=== PATIENT | female | born 1960 | race Caucasian/White ===

== ENCOUNTER 2022-04-21 13:52 | Outpatient (CLI) | payer OTHER, SELFPAY | END 2022-04-21 13:53 | disposition home or self-care (01) | LOC: NFLDUCREF 04-24 11:39 | PROVIDERS: PCP Family Medicine; Visit Provider Student in an Organized Health Care Education/Training Program | DX: R30.0 Dysuria (principal); N39.0 Urinary tract infection, site not specified | CPT/HCPCS: 87086 ==

== ENCOUNTER 2024-03-02 06:12 | Day surgery (SDC) | payer OTHER, SELFPAY ==
[2024-03-02] VITALS (8 sets, daily range): BP systolic 130–150; BP diastolic 70–79; PULSE 64–71; RESP 16; TEMP 36.6; O2SAT 96–98; BMI 27.8
[2024-03-02] MEDS: BUPIVACAINE 0.5% 30 ML INJECTION (07:00)
[2024-03-02] MEDS: ETHYL CHLORIDE 1 APPLICATION 1 APPLIC TOPICAL (07:00)
--- NOTE | 2024-03-02 07:17 | W.PM.H&PU ---
History & Physical Update History & Physical Update H&P Reviewed and patient assessed: No changes noted
[2024-03-02] MEDS: NEOMYCIN/BACITRACIN/POLYMYXIN B 1 APPLIC TOPICAL (07:36)
--- NOTE | 2024-03-02 07:39 | PM.ORPRC ---
Procedure Note Date of procedure: 03/02/24 Procedure: PREOPERATIVE DIAGNOSIS: 1. Right long finger flexor tenosynovitis - trigger finger POSTOPERATIVE DIAGNOSIS: 1. Right long finger flexor tenosynovitis - trigger finger PROCEDURE: 1. Right long finger flexor tendon sheath open release (A1 lobo) SURGEON: Reynaldo Sanders MD. [employer]ILITIES MANAGER: Chris Pa PA-C ANESTHESIA: Local anesthetic 4ml via 50:50 mixture of 1% Lidocaine with epi and 0.5% marcaine plain EBL: 2mL IMPLANTS: None TOURNIQUET: None COMPLICATIONS: None evident INDICATIONS: The patient is a pleasant 63-year-old female who has experienced right long finger catching/triggering for number of months. It has progressively gotten worse. Given the failure of nonoperative management, and how this affects daily life, surgery was recommended. DESCRIPTION OF PROCEDURE: Following a thorough discussion of risks, benefits, and alternatives consent was obtained and the operative digit(s) was marked. The patient was brought to the operating room and placed supine on the operating table. Local anesthesia induction was undertaken in preop holding. No antibiotics were administered as this was planned to be a local case only. Proper time-out was performed identifying proper patient, site, and procedure. The operative extremity was prepped and draped in the appropriate sterile fashion using ChloraPrep. An incision was made on the palmar surface of the hand overlying the MCP joint region of the appropriate digit(s) respecting the palmar creases being cautious not to cross these perpendicularly. Sharp incision through the skin, and blunt dissection through subcutaneous tissue allowing protection of crossing neurologic structures. The A1 lobo was visualized directly. It was incised sharply with a 15 blade. It was released completely from its distal to proximal extent under direct visualization. The tendon was inspected and found to be mildly striated consistent with some friction. Otherwise, it was intact. The tendon was removed out of the wound, and further inspected. The patient was asked to manually flex and extend the digits and showed no further catching. The catching, which was visualized initially, was no longer evident with reproduction of a manual fist and relaxation. Closure was performed with 4-O nylon in interrupted fashion. Soft dressings were applied, and the patient was transferred to the recovery room in stable condition. PLAN: 1. Encourage elevation of the operative extremity. 2. Range of motion of the fingers and hand/wrist as tolerated. 3. Ibuprofen/acetaminophen and/or oxycodone as needed for pain control. 4. Follow up with PA visit in 12-16 days for wound check and suture removal.
--- NOTE | 2024-03-02 08:01 | SUR.PREOP ---
SAME DAY SURGERY LOCAL INJECTION SITE VERIFICATION WAS PERFORMED BY SURGEON/PA AND PATIENT PRIOR TO LOCAL ANESTHETIC BEING INJECTED TO OPERATIVE SITE.
== END 2024-03-02 08:01 | disposition home or self-care (01) ==
LOC: OR 06:13
PROVIDERS: PCP Family Medicine; Visit Provider Orthopaedic Surgery Sports Medicine
PROC: (CPT 26055; principal; 2024-03-02 07:15)
DX: M65.331 Trigger finger, right middle finger (principal); M65.841 Other synovitis and tenosynovitis, right hand
CPT/HCPCS: 26055; J0665

== ENCOUNTER 2025-01-04 06:14 | Day surgery (SDC) | payer OTHER, SELFPAY ==
[2025-01-04] VITALS (10 sets, daily range): BP systolic 119–162; BP diastolic 66–80; PULSE 55–64; RESP 16–20; TEMP 36.4–36.6; O2SAT 94–100; BMI 28.3
[2025-01-04] MEDS: LIDOCAINE 1 % PF 30 ML INJECTION ×2 (07:00→07:32)
[2025-01-04] MEDS: BUPIVACAINE 0.5 %/EPI 1:200K INJECTION (07:00)
[2025-01-04] MEDS: ETHYL CHLORIDE 1 APPLICATION 1 APPLIC TOPICAL (07:00)
--- NOTE | 2025-01-04 07:20 | SUR.PHASEI ---
Vital signs during OR documented on Phase I area of chart.
--- NOTE | 2025-01-04 07:37 | P.ORPRC_ITS ---
Procedure Note Date of procedure: 01/04/25 Procedure: PREOPERATIVE DIAGNOSIS: 1. Right index and ring finger flexor tenosynovitis - trigger finger POSTOPERATIVE DIAGNOSIS: 1. Right index and ring finger flexor tenosynovitis - trigger finger PROCEDURE: 1. Right index and ring finger flexor tendon sheath open release (A1 lobo) SURGEON: Reynaldo Sanders MD. NAMED ACCOUNT EXECUTIVE: Chris Pa PA-C ANESTHESIA: Local anesthetic 8 mL total (4 mL per finger) via 50:50 mixture of 1% Lidocaine plain and 0.5% marcaine with epi EBL: 2mL IMPLANTS: None TOURNIQUET: None COMPLICATIONS: None evident INDICATIONS: The patient is a pleasant 64-year-old female who has experienced right index and ring finger catching/triggering for number of months. It has progressively gotten worse. Given the failure of nonoperative management, and how this affects daily life, surgery was recommended. DESCRIPTION OF PROCEDURE: Following a thorough discussion of risks, benefits, and alternatives consent was obtained and the operative digit(s) was marked. The patient was brought to the operating room and placed supine on the operating table. Local anesthesia induction was undertaken in preop holding. No antibiotics were administered as this was planned to be a local case only. Proper time-out was performed identifying proper patient, site, and procedure. The operative extremity was prepped and draped in the appropriate sterile fashion using ChloraPrep. An incision was made on the palmar surface of the hand overlying the MCP joint region of the appropriate digit(s) respecting the palmar creases being cautious not to cross these perpendicularly. Sharp incision through the skin, and blunt dissection through subcutaneous tissue allowing protection of crossing neurologic structures. The A1 lobo was visualized directly. It was incised sharply with a 15 blade. It was released completely from its distal to proximal extent under direct visualization. The tendon was inspected and found to be mildly striated consistent with some friction. Otherwise, it was intact. The tendon was removed out of the wound, and further inspected. The patient was asked to manually flex and extend the digits and showed no further catching. The catching, which was visualized initially, was no longer evident with reproduction of a manual fist and relaxation. Closure was performed with 4-O nylon in interrupted fashion. Soft dressings were applied, and the patient was transferred to the recovery room in stable condition. PLAN: 1. Encourage elevation of the operative extremity. 2. Range of motion of the fingers and hand/wrist as tolerated. 3. Ibuprofen/acetaminophen and/or oxycodone as needed for pain control. 4. Follow up with PA visit in 12-16 days for wound check and suture removal.
[2025-01-04] MEDS: BACITRACIN OINTMENT BULK TUBE 1 APPLIC TOPICAL (07:52)
== END 2025-01-04 08:17 | disposition home or self-care (01) ==
LOC: OR 06:14
PROVIDERS: PCP Family Medicine; Visit Provider Orthopaedic Surgery Sports Medicine
PROC: (CPT 26055; principal; 2025-01-04 07:15)
DX: M65.321 Trigger finger, right index finger (principal); M65.341 Trigger finger, right ring finger
CPT/HCPCS: 26055 ×2; J2003; J3490